=== PATIENT | female | born 1955 | race Caucasian/White ===

== ENCOUNTER → 2016-09-29 | Day surgery (SDC) | payer BC ==
[~2016-09-29] MED LIST: AMLODIPINE BESYL5 MG PO; ASPERDRINK81 MG PO; ASPIRIN PO; ASPIRIN81 M1 PO; BACTRIM 400-801 TA1 PO; CALCIUM 1,0001 EACH PO; CALCIUM 600 W/1 TAB PO; CALCIUM 600+D T1 TA1 PO; CALCIUM1 TAB.CHEW PO; CELEBREX PO; FLEXERIL10 M1 PO; FLEXERIL10 MG PO; FLONASE16 GM; GLUCOPHAGE XR500 MG PO; LASIX PO; LISINOPRIL PO; LISINOPRIL10 MG PO; LISINOPRIL20 MG PO; LORTAB 7.5-5001 TAB PO; MEVACOR PO; MOBIC PO; MULTI VITAMIN1 EACH PO; MULTI-VIT/MIN P1 TAB PO; MULTI-VITAMIN1 TAB PO; OSTEO BI-FLEX1 EAC4 PO; OXYCODONE-APAP1 EAC5 PO; PANTOPRAZOLE SO40 MG PO; PERCOCET 7.5-31 EACH PO; PHENERGAN PO; PLETAL100 MG PO; PLETAL50 MG PO; PREMARIN PO; PREMARIN0.3 MG PO; PREMARIN0.625 MG PO; ST JOSEPH ASPIR81 M1 PO; TYLENOL325 M1 PO; VERAMYST10 GM NS; VITAMIN D250000 UNIT PO; VITAMIN D31000 UNI1 PO; ZOFRAN ODT4 MG DOB; ZYRTEC PO; ZYRTEC10 M2 PO
--- NOTE | ~2016-09-29 | OR ---
Unit #: [id number] #: [id number] Patient: GIOVANNI BEST [id number] [address] [address] [id number] O MR#: [id number] NAME: GIOVANNI BEST. ROOM: Date of Procedure: 09/29/2016 Admission Date: 09/29/2016 Surgeon: Steven Mauro M.D. : 1955 Attending Physician: Steven Mauro M.D. Primary Care Physician: Onur Prince M.D. OPERATIVE REPORT JOB NOTE: CC: DR. ONUR PRINCE PRIMARY CARE PHYSICIAN Dr. Onur Prince. PREOPERATIVE DIAGNOSES Iron-deficiency anemia, anemia of chronic gastrointestinal blood loss. PROCEDURE PERFORMED Upper gastrointestinal endoscopy and biopsy as well as colonoscopy with polypectomies. POSTOPERATIVE DIAGNOSES For upper endoscopy: 1. The patient had grade 1 distal erosive esophagitis. 2. There was mild focal patchy erosive duodenitis. 3. Rest of the examination up to third part of duodenum was normal. A biopsy was obtained from the antrum for CLOtest. In addition, biopsies also obtained from deep descending duodenal folds to look for any evidence of partial villous atrophy or celiac disease. For colonoscopy: 1. The patient had 2 sessile polyps, one each in the transverse and descending colon. These were 5 to 8 mm each. Both were removed using snare polypectomy. 2. Scant sigmoid and descending colon diverticulosis. 3. Rest of the examination up to cecum and terminal ileum was normal. The quality of prep was excellent. RECOMMENDATIONS 1. Follow up the results of biopsies and polyp histology. 2. The patient being started on pantoprazole 40 mg p.o. daily. 3. She will require followup in the office in 3 to 4 months' time. 4. Repeat colonoscopy in 5 years. SEDATION USED MAC. DESCRIPTION OF PROCEDURE Following detailed explanation of potential risks and complications of an upper endoscopy and a colonoscopy, namely perforation, bleeding, and complications related to sedation, the patient was brought to GI lab and laid in the left lateral decubitus position. Lubricated tip of the Unit #: [id number] #: [id number] Patient: GIOVANNI BEST Olympus video upper endoscope was passed through the bite block into the proximal esophagus under direct vision. The entire esophageal mucosa was examined. The patient was noted to have grade 1 distal erosive esophagitis. The scope was then advanced into the gastric cavity and the latter was insufflated. Mucosa of the fundus, body, and antrum was examined and appeared unremarkable. Pylorus was intubated with visualization of the duodenal bulb. The latter was noted to have mild focal patchy erosive duodenitis. Second and third part of the duodenum were normal. Biopsies obtained from the deep descending duodenal folds to look for any evidence of partial villous atrophy or celiac disease. Upon withdrawal and retroflexion, incisura, cardia, and greater curve examined and biopsy obtained from the antrum for CLOtest. The scope was then withdrawn in the distal esophagus. Entire esophageal mucosa was examined all the way up to pharynx. No additional findings noted. The examination table was then turned by 180 degrees and the patient was positioned for a colonoscopy. A digital rectal examination was performed, which was normal. Lubricated tip of the Olympus video colonoscope was inserted through the anus and advanced under direct vision. The scope was advanced and passed up to sigmoid into descending colon. Scant small diverticula were noticed in this area. The scope tip was then navigated all the way up to cecum with visualization of the ileocecal valve and the appendiceal orifice. Preparation was excellent with good visualization and photodocumentation was obtained. Last few inches of the terminal ileum also visualized after intubation of ileocecal valve and appeared normal. Successive segments of the colonic mucosa were examined upon withdrawal. The patient was noted to have 2 sessile polyps, one each in the transverse and descending colon. These were 5 to 8 mm each. The photodocumentation was obtained and excellent hemostasis was documented. No additional polyps noted. Other than the scant diverticula seen in the left side, no other abnormalities found. The patient did not have any hemorrhoids at anal verge. She tolerated the procedure without any postprocedure complications. Dictated by... Wilmar Madrigal/myah TD: 09/30/2016 05:16 JOB #: [id number] OPERATIVE REPORT X Steven Mauro MD X PROCEDURE OPERATIVE NOTE
== END | disposition home or self-care (01) ==
LOC: COPS 11:53
DX: K20.8 Other esophagitis (principal); K29.80 Duodenitis without bleeding; D12.4 Benign neoplasm of descending colon; D12.3 Benign neoplasm of transverse colon; K57.30 Diverticulosis of large intestine without perforation or abscess without bleeding; D50.0 Iron deficiency anemia secondary to blood loss (chronic); I10 Essential (primary) hypertension; M19.90 Unspecified osteoarthritis, unspecified site; Z79.82 Long term (current) use of aspirin
CPT/HCPCS: 87077; 88305; J2250